=== PATIENT | female | born 1990 | race Caucasian/White ===

== ENCOUNTER → 2016-03-20 | Outpatient (CLI) | payer BC ==
--- NOTE | 2016-03-20 14:53 | RAD ---
Indication can't find strings associated with IUD. Pelvic ultrasound examination was performed. No prior imaging is available. The hCG status is uncertain but for the purposes of this dictation will be assumed to be negative. The urinary bladder appears grossly normal. Uterus measures approximately 7 x 4 x 3 cm. It appears unremarkable. IUD is noted which appears appropriately positioned. The ovaries appear unremarkable. There is a dominant cyst associated with the left ovary. IMPRESSION: No significant finding. IUD noted.
== END | disposition home or self-care (01) ==
LOC: EDUNIT# 12:30 → US 12:33
PROVIDERS: ATTEND Family Medicine
DX: T83.39XA Other mechanical complication of intrauterine contraceptive device, initial encounter (principal)
CPT/HCPCS: 76830; 76856